=== PATIENT | female | born 1960 | race Caucasian/White ===

== ENCOUNTER 2021-05-10 15:50 | Outpatient (CLI) | payer OTHER, SELFPAY ==
--- NOTE | 2021-05-10 16:01 | XRR_ITS ---
PROCEDURE INFORMATION: Exam: XR Left Ribs with PA Chest Exam date and time: 05/10/2021 4:01 PM Age: 61 years old Clinical indication: Chest wall pain; Left; Additional info: Left rib pain TECHNIQUE: Imaging protocol: XR Left ribs with PA chest. Views: 3 views COMPARISON: No relevant prior studies available. FINDINGS: Lungs: Unremarkable. No consolidation. Pleural spaces: Unremarkable. No pleural effusion. No pneumothorax. Heart/Mediastinum: Unremarkable. No cardiomegaly. Bones/joints: No left rib fracture or other acute osseous abnormality. XR/XR ribs LT mn 3V w CXR1V [id number] IMPRESSION: No acute abnormality demonstrated.
== END 2021-05-10 15:51 | disposition home or self-care (01) ==
PROVIDERS: Visit Provider Family Medicine
DX: R07.81 Pleurodynia (principal)
CPT/HCPCS: 71101

== ENCOUNTER 2022-02-22 08:06 | Outpatient (CLI) | payer OTHER, SELFPAY ==
--- NOTE | 2022-02-22 08:15 | US_ITS ---
WS: [id number] Ultrasound LEFT chest. HISTORY: LEFT upper quadrant pain that rib. Ultrasound is directed to the area of pain as per the patient. There is no fluid collection. There is shadowing from the ribs. There is adjacent hypoechoic area with no increased vascularity. This is pr obably the intercostal muscles. US/US chest [id number] IMPRESSION: No significant abnormalities identified by ultrasound. This is a very limited e valuation of the soft tissues. Consider follow-up chest CT with IV contrast to better evaluate the ribs and soft tissues.
== END 2022-02-22 08:07 | disposition home or self-care (01) ==
LOC: RAD 08:07
PROVIDERS: Visit Provider Family Medicine
DX: M94.0 Chondrocostal junction syndrome [Tietze] (principal)
CPT/HCPCS: 76604

== ENCOUNTER 2022-03-14 12:19 | Outpatient (CLI) | payer OTHER, SELFPAY ==
--- NOTE | 2022-03-14 12:58 | MM_ITS ---
WS: [id number] BILATERAL 3D TOMOSYNTHESIS DIGITAL SCREENING MAMMOGRAPHY WITH CAD CLINICAL INFORMATION: SCREENING HISTORY: Screening mammogram. LEFT breast pain COMPARISON: TECHNIQUE: Bilateral CC and MLO views. FINDINGS: Scattered fibroglandular densities bilaterally. No suspicious focal mass, asymmetry, calcifications, or architectural distortion. No evidence of malignancy. MM/[place] [id number] IMPRESSION: BI-RADS: 1-Negative FOLLOW UP: 1 Year Follow-up Recommend return to annual screening mammography.
== END 2022-03-14 12:20 | disposition home or self-care (01) ==
LOC: RAD 12:24
PROVIDERS: Visit Provider Family Medicine
DX: Z12.31 Encounter for screening mammogram for malignant neoplasm of breast (principal)
CPT/HCPCS: 77063; 77067

== ENCOUNTER → 2022-11-17 12:24 | Outpatient (BNVA) | payer OTHER, SELFPAY | PROVIDERS: Visit Provider Registered Nurse Neonatal Intensive Care | DX: M79.643 Pain in unspecified hand (principal); M19.042 Primary osteoarthritis, left hand; W19.XXXA Unspecified fall, initial encounter | CPT/HCPCS: 73130 ==

== ENCOUNTER → 2023-01-30 13:04 | Outpatient (BNVA) | payer OTHER, SELFPAY | PROVIDERS: Visit Provider Podiatrist Foot & Ankle Surgery | DX: M20.12 Hallux valgus (acquired), left foot (principal); M20.42 Other hammer toe(s) (acquired), left foot; L84 Corns and callosities | CPT/HCPCS: 73630 ==

== ENCOUNTER 2023-09-11 13:16 | Outpatient (CLI) | payer OTHER, SELFPAY ==
--- NOTE | 2023-09-11 13:22 | MM_ITS ---
WS: [id number] BILATERAL 3D TOMOSYNTHESIS DIGITAL SCREENING MAMMOGRAPHY WITH CAD CLINICAL INFORMATION: SCREENING HISTORY: Screening mammogram. No current complaints. COMPARISON: 03/14/2022 TECHNIQUE: Bilateral CC and MLO views. FINDINGS: Scattered fibroglandular densities bilaterally. No suspicious focal mass, asymmetry, calcifications, or architectural distortion. No evidence of malignancy. IMPRESSION: MM/[place] [id number] BI-RADS: 1-Negative FOLLOW UP: 1 Year Follow-up Recommend return to annual screening mammography.
== END 2023-09-11 13:17 | disposition home or self-care (01) ==
LOC: RAD 13:16
PROVIDERS: Visit Provider Family Medicine
DX: Z12.31 Encounter for screening mammogram for malignant neoplasm of breast (principal)
CPT/HCPCS: 77063; 77067